=== PATIENT | female | born 1980 | race Caucasian/White ===

== ENCOUNTER 2021-07-12 21:40 | Emergency (ER) | payer MEDICAID ==
[~2021-07-12] VITALS: Ht 165.1 cm; Wt 81.8 kg
[~2021-07-12 21:40] MED LIST: CYCL-1 PO; HYDR1TAB PO; MULT-1179 PO; NITR100C6 PO; WEL75T PO
[2021-07-12 22:32] LABS: BASOPHILS # (AUTO) 0.1 X10'3 (0-0.2); EOSINOPHILS # (AUTO) 0.2 X10'3 (0-0.9); EOSINOPHILS % (AUTO) 2.2 % (0-6); HEMATOCRIT 40.4 % (35.0-45.0); HEMOGLOBIN 13.3 g/dl (12.0-16.0); LYMPHOCYTES # (AUTO) 0.4 X10'3 (1.1-4.8); LYMPHOCYTES % (AUTO) 3.7 % (21-51); MEAN CORPUSCULAR HEMOGLOBIN 29.8 PG (27.0-31.0); MEAN CORPUSCULAR HGB CONC 32.8 g/dL (33.0-36.5); MEAN PLATELET VOLUME 7.8 FL (7.4-10.4); MONOCYTES # (AUTO) 0.2 X10'3 (0-0.9); MONOCYTES % (AUTO) 1.8 % (2-12); NEUTROPHILS # (AUTO) 9.1 X10'3 (1.8-7.7); NEUTROPHILS % (AUTO) 91.3 % (42-75); PLATELET COUNT 296 X10'3 (140-440); RED BLOOD COUNT 4.44 X10'6 (4.20-5.60); RED CELL DISTRIBUTION WIDTH 13.5 % (11.5-14.5); WHITE BLOOD COUNT 9.9 X10'3 (4.5-11.0)
[2021-07-12 22:39] LABS: ALANINE AMINOTRANSFERASE 17 U/L (12-78); ALBUMIN 3.8 G/DL (3.4-5.0); ALKALINE PHOSPHATASE 107 IU/L (46-116); ANION GAP 9 (8-16); ASPARTATE AMINO TRANSFERASE 19 U/L (10-37); BILIRUBIN,TOTAL 0.8 MG/DL (0.1-1.0); BLOOD UREA NITROGEN 13 MG/DL (7-18); BUN/CREATININE RATIO 15.5 (6.6-38.0); CALCIUM 8.8 MG/DL (8.5-10.1); CHLORIDE 104 MMOL/L (99-107); CREATININE 0.84 MG/DL (0.40-0.90); GLUCOSE 101 MG/DL (70-104); LIPASE 72 U/L (73-393); SODIUM 138 MMOL/L (135-145); TOTAL CARBON DIOXIDE 25.4 MMOL/L (24-32); TOTAL PROTEIN 7.6 G/DL (6.4-8.2); eGFR 74 ML/MIN
[2021-07-12 23:41] LABS: CLARITY,URINE SLIGHTLY CLOUDY (Clear); COLOR,URINE YELLOW (Yellow); GLUCOSE, URINE NEGATIVE (Neg); KETONES,URINE TRACE mg/dl (Neg); LEUKOCYTE ESTERASE ,URINE NEGATIVE (Neg); NITRITES, URINE NEGATIVE (Neg); OCCULT BLOOD,URINE TRACE-INTACT (Neg); PROTEIN,URINE NEGATIVE (Neg); UROBILINOGEN,URINE 0.2 E.U/dL (0.2-1.0)
[2021-07-12 23:45] LABS: URINE HCG NEGATIVE (NEG)
[2021-07-12 23:46] LABS: UA COLLECTION TYPE CLN CATCH MIDSTREAM
[2021-07-12 23:51] LABS: BACTERIA,URINE FEW /HPF (Neg); WBC,URINE 0-4 /HPF (0-4)
[2021-07-12 23:53] LABS: SQUAMOUS EPITHELIAL CELL,UR MANY /LPF (FEW)
[2021-07-13] MEDS ORDERED: famotidine 20mg tablet PO ONE (00:30)
[2021-07-13] MEDS ORDERED: LOPE2CAP PO (00:30)
[2021-07-13] MEDS ORDERED: ondansetron 4mg rapidly disintigrating tab PO ONE (00:30)
[2021-07-13] MEDS ORDERED: PANT-47 PO (00:30)
[2021-07-13] MEDS ORDERED: loperamide 2mg capsule PO ONE (00:30)
[2021-07-13] MEDS ORDERED: mag hydrox/Alum hydrox/simeth 30ml oral suspension PO ONE (00:30)
[2021-07-13] MEDS ORDERED: FAMO-128 PO (00:30)
[2021-07-13] MEDS ORDERED: ONDA8TAB13 PO (00:30)
[2021-07-13 00:46] VITALS: BP 130/95
== END 2021-07-13 00:56 | disposition home or self-care (01) ==
LOC: ER 21:41
DX: R11.2 Nausea with vomiting, unspecified (principal); R10.9 Unspecified abdominal pain; R19.7 Diarrhea, unspecified; F32.A Depression, unspecified; Z88.2 Allergy status to sulfonamides; Z79.899 Other long term (current) drug therapy
CPT/HCPCS: 80053; 81001; 81025; 83690; 85025; 99284

== ENCOUNTER 2022-04-20 16:08 | Emergency (ER) | payer MEDICAID ==
[~2022-04-20] VITALS: Ht 165.1 cm; Wt 86.4 kg
[~2022-04-20 16:08] MED LIST changes: +FAMO-128 PO; +LOPE2CAP PO; +ONDA8TAB13 PO; +PANT-47 PO
[2022-04-20 16:10] VITALS: BP 131/87
[2022-04-20] MEDS ORDERED: HYDROcodone/acetaminophen 5mg/325mg tablet PO ONE (18:40)
[2022-04-20] MEDS ORDERED: HYDR-3965 PO (20:28)
== END 2022-04-20 20:45 | disposition home or self-care (01) ==
LOC: ER 16:08
DX: R51.9 Headache, unspecified (principal); F32.A Depression, unspecified; Z88.2 Allergy status to sulfonamides; Z79.899 Other long term (current) drug therapy; Z79.1 Long term (current) use of non-steroidal anti-inflammatories (NSAID); Z79.2 Long term (current) use of antibiotics; Z87.448 Personal history of other diseases of urinary system
CPT/HCPCS: 70450; 99284

== ENCOUNTER 2023-09-22 10:53 | Emergency (ER) | payer MEDICAID, OTHER ==
[~2023-09-22] VITALS: Ht 165.1 cm; Wt 96.3 kg
[~2023-09-22 10:53] MED LIST changes: +ONDA-245 PO; -ONDA8TAB13 PO
[2023-09-22 10:58] VITALS: BP 124/73; PULSE 60; O2SAT 98
[2023-09-22 11:45] VITALS: RESP 16
[2023-09-22] MEDS ORDERED: CEPH-585 PO (12:01)
[2023-09-22] MEDS ORDERED: SILV50CR31 TOP (12:01)
[2023-09-22 12:14] VITALS: TEMP 98.5
== END 2023-09-22 12:15 | disposition home or self-care (01) ==
LOC: ER 10:53
DX: T22.212A Burn of second degree of left forearm, initial encounter (principal); F32.A Depression, unspecified; Z98.890 Other specified postprocedural states; Z88.2 Allergy status to sulfonamides; Z79.899 Other long term (current) drug therapy; X12.XXXA Contact with other hot fluids, initial encounter; Y93.G3 Activity, cooking and baking; Y92.89 Other specified places as the place of occurrence of the external cause; Y99.8 Other external cause status
CPT/HCPCS: 99283

== ENCOUNTER 2024-05-09 02:12 | Emergency (ER) | payer OTHER ==
[~2024-05-09] VITALS: Ht 162.6 cm; Wt 93.7 kg
[2024-05-09 02:22] VITALS: BP 133/52; PULSE 80; RESP 16; TEMP 98.7; O2SAT 99
[2024-05-09 02:51] LABS: BASOPHILS # (AUTO) 0.1 X10'3 (0-0.2); BASOPHILS % (AUTO) 0.5 % (0-1); EOSINOPHILS % (AUTO) 0.1 % (0-6); HEMATOCRIT 37.2 % (35.0-45.0); HEMOGLOBIN 11.7 g/dl (12.0-16.0); LYMPHOCYTES # (AUTO) 1.9 X10'3 (1.1-4.8); LYMPHOCYTES % (AUTO) 18.7 % (21-51); MEAN CORPUSCULAR HEMOGLOBIN 26.8 PG (27.0-31.0); MEAN CORPUSCULAR HGB CONC 31.4 g/dL (33.0-36.5); MEAN CORPUSCULAR VOLUME 85.2 FL (78-98); MEAN PLATELET VOLUME 7.8 FL (7.4-10.4); MONOCYTES # (AUTO) 0.5 X10'3 (0-0.9); MONOCYTES % (AUTO) 4.6 % (2-12); NEUTROPHILS # (AUTO) 7.8 X10'3 (1.8-7.7); NEUTROPHILS % (AUTO) 76.1 % (42-75); PLATELET COUNT 390 X10'3 (140-440); RED BLOOD COUNT 4.37 X10'6 (4.20-5.60); RED CELL DISTRIBUTION WIDTH 15.4 % (11.5-14.5); WHITE BLOOD COUNT 10.3 X10'3 (4.5-11.0)
[2024-05-09 03:07] LABS: ALANINE AMINOTRANSFERASE 19 U/L (12-78); ALBUMIN 3.7 G/DL (3.4-5.0); ALBUMIN/GLOBULIN RATIO 0.9 (1.1-1.5); ALKALINE PHOSPHATASE 111 IU/L (46-116); ANION GAP 15 (8-16); ASPARTATE AMINO TRANSFERASE 19 U/L (10-37); BILIRUBIN,TOTAL 0.3 MG/DL (0.1-1.0); BLOOD UREA NITROGEN 8 MG/DL (7-18); BUN/CREATININE RATIO 9.8 (10.0-20.0); CALCIUM 8.6 MG/DL (8.5-10.1); CHLORIDE 106 MMOL/L (99-107); CREATININE 0.82 MG/DL (0.40-0.90); GLUCOSE 137 MG/DL (70-104); PRO BRAIN NATRIURETIC PEPTIDE 66 PG/ML (0-125); SODIUM 141 MMOL/L (135-145); eCRCL 74 ML/MIN; eGFR 75 ML/MIN
== END 2024-05-09 04:37 | disposition left against medical advice (07) ==
LOC: ER 02:12
DX: R00.2 Palpitations (principal); R51.9 Headache, unspecified; Z88.2 Allergy status to sulfonamides
CPT/HCPCS: 36415; 71045; 80053; 83880; 84484; 85025; 93005